=== PATIENT | female | born 1940 | race Caucasian/White ===

== ENCOUNTER → 2016-08-30 | Outpatient (CLI) | payer MEDICARE ==
[~2016-08-30] MED LIST: ASPIR 8181 M1 PO; AZITHROMYCIN250 MG PO; BENAZEPRIL-HCT1 EAC2 PO; CELEBREX200 MG PO; COUMADIN,JANTO1.5 MG PO; COUMADIN,JANTOVE1 MG PO; Feosol PO; HYDROCODON-ACE1 EAC7 PO; Lopressor PO; PROTONIX40 MG PO; PriLOSEC PO; SENOKOT S,PE1 TABLET PO; SIMCOR 500/21 TABLET PO; SIMVASTATIN20 MG PO; Vicodin,Norco 5/325 PO
== END | disposition home or self-care (01) ==
LOC: CDC 08:15
DX: Z01.810 Encounter for preprocedural cardiovascular examination (principal); G56.02 Carpal tunnel syndrome, left upper limb
CPT/HCPCS: 93000